=== PATIENT | female | born 1995 | race African-American/Black ===

== ENCOUNTER 2019-06-02 13:13 | Emergency (ER) | payer MEDICAID ==
[~2019-06-02] VITALS: Ht 149.9 cm; Wt 71.0 kg
[2019-06-02 13:27] VITALS: BP 101/48
== END 2019-06-02 18:43 | disposition left against medical advice (07) ==
LOC: ER 13:13
DX: Z53.21 Procedure and treatment not carried out due to patient leaving prior to being seen by health care provider (principal)

== ENCOUNTER 2019-07-06 18:43 | Emergency (ER) | payer MEDICAID ==
[~2019-07-06] VITALS: Ht 144.8 cm; Wt 71.0 kg
[2019-07-07] MEDS ORDERED: ACETAMINOPHEN 325MG TABLET PO STA (02:30)
[2019-07-07] MEDS ORDERED: MAGNESIUM/ALUMINUM HYDROXIDE/SIMETHICONE 30ML UDC PO STA (02:30)
[2019-07-07] MEDS ORDERED: VISCOUS LIDOCAINE 2% 15 ML UDC PO STA (02:30)
[2019-07-07 02:43] LABS: BASOPHILS % 0.6 % (0.0-2.0); EOSINOPHILS % 1.6 % (0.0-5.0); HEMATOCRIT. 37.3 % (36.0-48.0); HEMOGLOBIN. 12.5 g/dL (12.0-16.0); LYMPHOCYTES % 29.4 % (20.0-50.0); MEAN CORPUSCULAR HEMOGLOBIN 26.9 pg (28.0-32.0); MEAN PLATELET VOLUME 7.6 fl (7.4-10.4); NEUTROPHILS % 63.4 % (40.0-76.0); PLATELET 299 x1000/uL (130-400); RED BLOOD CELL COUNT 4.67 mill/uL (4.2-5.4); RED CELL DISTRIBUTION WIDTH 15.5 % (11.6-14.6)
[2019-07-07 02:48] LABS: CLARITY URINE CLOUDY (CLEAR); COLOR URINE DARK YELLOW (YELLOW); KETONES URINE TRACE (NEGATIVE); LEUKOCYTE ESTERASE URINE NEGATIVE (NEGATIVE); NITRITE URINE NEGATIVE (NEGATIVE); OCCULT BLOOD URINE NEGATIVE (NEGATIVE); PH URINE 5.5 (4.5-8.0); PROTEIN URINE NEGATIVE (NEGATIVE); SPECIFIC GRAVITY URINE 1.033 (1.005-1.030)
[2019-07-07 02:49] LABS: CHLORIDE 108 mEq/L (98-107)
[2019-07-07 03:17] LABS: B-HCG QUANTITATIVE 87325 mIU/mL (<3)
[2019-07-07 04:34] VITALS: BP 119/74
== END 2019-07-07 04:36 | disposition home or self-care (01) ==
LOC: ER 18:43
DX: O26.891 Other specified pregnancy related conditions, first trimester (principal); R10.13 Epigastric pain; J45.909 Unspecified asthma, uncomplicated; O99.331 Smoking (tobacco) complicating pregnancy, first trimester; O99.321 Drug use complicating pregnancy, first trimester; F12.90 Cannabis use, unspecified, uncomplicated; Z98.890 Other specified postprocedural states; Z88.3 Allergy status to other anti-infective agents; Z3A.12 12 weeks gestation of pregnancy
CPT/HCPCS: 36415; 76801; 80053; 81003; 81025; 84702; 85025; 86850; 86900; 99284